=== PATIENT | male | born 1960 | race Caucasian/White ===

== ENCOUNTER 2023-09-04 10:51 | Emergency (ER) | payer MEDICAID ==
[~2023-09-04] VITALS: Ht 165.1 cm; Wt 68.2 kg
[~2023-09-04 10:51] MED LIST: ALBU18HF12 IH
[2023-09-04 11:05] VITALS: TEMP 98.3
[2023-09-04 13:29] LABS: BASOPHILS % (AUTO) 0.2 % (0.0-2.0); HEMATOCRIT 47.6 % (41-53); HEMOGLOBIN 15.7 g/dL (13.5-17.5); LYMPHOCYTES # (AUTO) 1.8 K/uL (1.0-4.8); LYMPHOCYTES % (AUTO) 13.1 % (22.0-44.0); MEAN CORPUSCULAR HEMOGLOBIN 26.3 pg (26.0-34.0); MEAN CORPUSCULAR HGB CONC 32.9 G/dL (31.0-37.0); MEAN CORPUSCULAR VOLUME 80 fL (80-100); NEUTROPHILS % (AUTO) 78.7 % (40.0-70.0); PLATELET COUNT (AUTO) 251 K/uL (150-450); RED BLOOD CELL COUNT(AUTO) 5.97 MIL/uL (4.50-5.90); RED CELL DISTRIBUTION WIDTH 13.6 % (11.5-14.5)
[2023-09-04 13:46] LABS: ANION GAP 9 mmol/L (8-16); CALCIUM, TOTAL 9.4 mg/dL (8.8-10.5); CARBON DIOXIDE 26 mmol/L (22-29); CHLORIDE 97 mmol/L (98-107); CREATININE 1.07 mg/dL (0.60-1.30); GLOMERULAR FILTR. RATE CALC > 60 mL/min (>60); POTASSIUM 4.8 mmol/L (3.5-5.1); SODIUM SERUM 132 mmol/L (136-145); UREA NITROGEN, BLOOD 20 mg/dL (7-18)
[2023-09-04 13:48] LABS: GLUCOSE,RANDOM 469 mg/dL (70-110)
[2023-09-04 13:49] LABS: LACTIC ACID 1.7 mmol/L (0.4-2.0)
[2023-09-04] MEDS: PIPERACILLIN/TAZO 3.375 GM/D5W 50 ML IV ONE (15:06)
[2023-09-04] MEDS: KETOROLAC TROMETHAMINE 30 MG/ML VIAL IVP ONE (15:06)
[2023-09-04] MEDS: INSULIN REGULAR, HUMAN 100 UNITS/ML SQ ONE (15:09)
[2023-09-04] MEDS: VANCOMYCIN 1GM/WATER(PEG/NADA) 200 ML IV ONE (15:10)
[2023-09-04] MEDS ORDERED: BACTDSB PO (15:55)
[2023-09-04] MEDS ORDERED: CEPH-558 PO (15:55)
[2023-09-04 17:11] VITALS: BP 133/85; PULSE 99; RESP 18
== END 2023-09-04 17:49 | disposition left against medical advice (07) ==
LOC: EMS 10:51
DX: L03.011 Cellulitis of right finger (principal); J45.909 Unspecified asthma, uncomplicated; Z79.899 Other long term (current) drug therapy
CPT/HCPCS: 99285; 96365; 71045; 96375; 80048; 83605; 85025; 87040; 36415; 73130; 93005; 96368; 96372; J1815; J1885; J2543; J3490